=== PATIENT | female | born 1975 | race Hispanic/Latino ===

== ENCOUNTER 2016-08-03 22:45 | Emergency (ER) | payer OTHER ==
[~2016-08-03] VITALS: Ht 149.9 cm; Wt 58.2 kg
[~2016-08-03 22:45] MED LIST: AMOXICILLIN500 MG OR; AMOXICILLIN500 MG PO; ANTIVERT25 MG PO; AUGMENTIN875TAB PO; BACTRIM DS1 TAB OR; BAYER ASA325 MG OR; BENZONATATE200 MG PO; CEPHALEXIN500 MG PO; CIPRO500 MG OR; CIPROFLOXACN500 MG PO; CLARITIN10 M1 PO; CORTISPORIN OTI10 ML AD; DEPO-PROVER150 MG/M1 IM; EPIPEN0.3 MG IM; FLONASE NASAL50 MCG; HYCODAN1 ML OR; KEFLEX500 MG OR; LEVAQUIN750 MG PO; LORTAB 10-325 M1 TAB PO; LORTAB 5 OR; LORTAB5 PO; Levaquin OR; MEDROL4 M1 PO; METRONIDAZOL500 MG PO; MOTRIN400 MG OR; MOTRIN800 MG/TAB PO; MUCINEX600 MG PO; NAPROSYN500 MG OR; NO; NO HOME MEDS; OMNICEF300 MG PO; ONDANSETRON4 MG PO; PEPCID20 MG OR; PREDNISONE20 MG PO; PREVACID30 M1 PO; PREVACID30 M2 OR; PREVACID30 M2 PO; PREVACID30 M3 PO; PRILOSEC20 MG OR; PROAIR HFA IN; PROMETHAZINE12.5 MG PO; ROBITUSSIN AC10 ML OR; TESSALON PER100 MG PO; TRAMADOL HCL50 MG OR; TRIMOX500 MG PO; ULTRAM50 M1 PO; ULTRAM50 MG OR; VITAMIN C500 MG OR; ZOFRAN ODT4 MG PO; [UNRECOGNIZED DRUG - CODE] OR
[2016-08-03] MEDS ORDERED: PERCOCET 5/325M1 TAB PO (23:08)
[2016-08-03] MEDS ORDERED: KEFLEX500 M1 PO (23:08)
[2016-08-03 23:20] VITALS: BP 128/74
== END 2016-08-03 23:22 | disposition home or self-care (01) | DRG 156 ==
LOC: ED 22:45
DX: H60.02 Abscess of left external ear (principal)

== ENCOUNTER 2016-09-03 10:38 | Emergency (ER) | payer OTHER ==
[~2016-09-03] VITALS: Ht 149.9 cm; Wt 58.0 kg
[~2016-09-03 10:38] MED LIST changes: +KEFLEX500 M1 PO; +PERCOCET 5/325M1 TAB PO
[2016-09-03 11:30] LABS: HEMATOCRIT 40.5 % (37.0-47.0); HEMOGLOBIN 14.1 g/dl (12.0-16.0); IMMATURE GRANULOCYTES 0.2 % (0.0-1.0); MEAN CELL VOLUME 92.9 fL CALC (80.0-100.0); MEAN CORPUSCULAR HGB 32.3 pG CALC (26.0-32.0); MEAN CORPUSCULAR HGB CONC 34.8 g/L CALC (32.0-36.0); NEUT# 4.03 thou/uL (2.00-7.15); RED BLOOD COUNT 4.36 mill/uL (4.20-5.60); RED CELL DISTRI WIDTH 13.1 % (11.5-15.5)
[2016-09-03 11:35] LABS: URINE BILIRUBIN - DIPSTICK NEGATIVE (NEGATIVE); URINE BLOOD DIPSTICK NEGATIVE (NEGATIVE); URINE CLARITY CLEAR; URINE COLOR YELLOW; URINE GLUCOSE - DIPSTICK NEGATIVE (NEGATIVE); URINE KETONE NEGATIVE (NEGATIVE); URINE LEUK ESTERASE NEGATIVE (NEGATIVE); URINE NITRITE - DIPSTICK NEGATIVE (Negative); URINE PH 5.5 (4.5-8.0); URINE PROTEIN - DIPSTICK NEGATIVE (NEG-TRACE); URINE SPECIFIC GRAVITY 1.025; URINE UROBILINOGEN - DIPSTICK 0.2 E.U./dL (0.2)
[2016-09-03 11:49] LABS: ALBUMIN 4.3 g/dL (3.2-5.0); ALKALINE PHOSPHATASE 64 u/l (38-126); AMYLASE 87 u/l (30-110); ANION GAP 14 (6-22 (CALC)); BILIRUBIN, TOTAL 0.2 mg/dL (0.0-1.4); BUN 11 mg/dL (7-17); BUN/CREATININE RATIO 19 (12-20 (CALC)); CARBON DIOXIDE 23 mmol/l (22-30); CHLORIDE 109 mmol/l (95-108); CREATININE 0.6 mg/dL (0.5-1.0); GFR > 60 ML/MIN (>=60 (CALC)); GFR FOR AFR.AMER. > 60 ML/MIN (>=60 (CALC)); GLUCOSE 91 mg/dL (65-105); LIPASE 73 u/l (23-300); SGOT/AST 22 u/l (14-36); SGPT/ALT 32 u/l (9-52); SODIUM 142 mmol/l (137-146); TOTAL PROTEIN 6.8 g/dL (6.3-8.2)
[2016-09-03 11:58] LABS: MYOGLOBIN 17 ng/mL (0 - 62)
[2016-09-03] MEDS ORDERED: ZOFRAN ODT4 MG PO (12:10)
[2016-09-03] MEDS ORDERED: NEXIUM40 M1 PO (12:10)
[2016-09-03 12:15] VITALS: BP 117/76
== END 2016-09-03 12:15 | disposition home or self-care (01) | DRG 392 ==
LOC: ED 10:38
PROVIDERS: Emergency Medicine
DX: K29.00 Acute gastritis without bleeding (principal); F41.9 Anxiety disorder, unspecified; K21.9 Gastro-esophageal reflux disease without esophagitis; F17.210 Nicotine dependence, cigarettes, uncomplicated

== ENCOUNTER 2018-08-17 20:14 | Emergency (ER) | payer OTHER ==
[~2018-08-17] VITALS: Ht 149.9 cm; Wt 70.0 kg
[~2018-08-17 20:14] MED LIST changes: +NEXIUM40 M1 PO
[2018-08-17] MEDS ORDERED: CORTISPORIN OTI10 M2 AD (20:43)
[2018-08-17] MEDS ORDERED: PREDNISONE20 MG PO (20:43)
[2018-08-17 20:50] VITALS: BP 123/78
== END 2018-08-17 20:50 | disposition home or self-care (01) ==
LOC: ED 20:14
DX: H60.91 Unspecified otitis externa, right ear (principal); F17.210 Nicotine dependence, cigarettes, uncomplicated

== ENCOUNTER 2018-08-31 20:57 | Emergency (ER) | payer OTHER ==
[~2018-08-31] VITALS: Ht 149.9 cm; Wt 65.0 kg
[~2018-08-31 20:57] MED LIST changes: +CORTISPORIN OTI10 M2 AD
[2018-08-31] MEDS ORDERED: AUGMENTIN875TAB PO (21:43)
[2018-08-31 21:50] VITALS: BP 140/93
== END 2018-08-31 21:50 | disposition home or self-care (01) ==
LOC: ED 20:57
DX: T63.481A Toxic effect of venom of other arthropod, accidental (unintentional), initial encounter (principal); J31.0 Chronic rhinitis; F17.210 Nicotine dependence, cigarettes, uncomplicated

== ENCOUNTER 2019-03-06 13:36 | Emergency (ER) | payer OTHER ==
[2019-03-06] MEDS ORDERED: AMOX/K CLAV875 M1 PO (15:28)
[2019-03-06 15:40] VITALS: BP 127/83
== END 2019-03-06 15:40 | disposition home or self-care (01) ==
LOC: ED 13:36
DX: J32.9 Chronic sinusitis, unspecified (principal); F17.210 Nicotine dependence, cigarettes, uncomplicated

== ENCOUNTER 2022-02-10 21:52 | Emergency (ER) | payer OTHER ==
[~2022-02-10] VITALS: Ht 149.9 cm; Wt 56.8 kg
[~2022-02-10 21:52] MED LIST changes: +AMOX/K CLAV875 M1 PO
[2022-02-11 00:41] LABS: URINE BILIRUBIN - DIPSTICK NEGATIVE (NEGATIVE); URINE BLOOD DIPSTICK TRACE-INTACT (NEGATIVE); URINE COLOR YELLOW; URINE GLUCOSE - DIPSTICK NEGATIVE (NEGATIVE); URINE KETONE NEGATIVE (NEGATIVE); URINE LEUK ESTERASE NEGATIVE (NEGATIVE); URINE PROTEIN - DIPSTICK NEGATIVE (NEG-TRACE); URINE UROBILINOGEN - DIPSTICK 0.2 E.U./dL (0.2)
[2022-02-11 00:48] LABS: URINE NITRITE - DIPSTICK NEGATIVE (Negative)
[2022-02-11] MEDS ORDERED: MEDDOSEPAK PO (00:57)
[2022-02-11] MEDS ORDERED: KEFLEX500 MG PO (00:57)
[2022-02-11 01:00] VITALS: BP 142/96
== END 2022-02-11 01:03 | disposition home or self-care (01) ==
LOC: ED 21:52
PROVIDERS: Emergency Medicine
DX: J04.0 Acute laryngitis (principal); E78.00 Pure hypercholesterolemia, unspecified; F17.200 Nicotine dependence, unspecified, uncomplicated; Z20.822 Contact with and (suspected) exposure to COVID-19